=== PATIENT | male | born 1975 | race Caucasian/White ===

== ENCOUNTER 2020-10-27 07:24 | Emergency (ER) | payer OTHER ==
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
[2020-10-27] MEDS ORDERED: Diphtheria,Pertussis(Acell),Tetanus Vaccine 0.5 ML Syringe IM ONE (07:52)
--- NOTE | 2020-10-27 08:30 | CR ---
Right elbow: 2 views of the right elbow were obtained. Comparison: No prior elbow study is available. Fracture is identified within the radial neck which shows no displacement. Fracture is noted within the proximal one third of the radial diaphysis which remains anatomically aligned. Fracture is noted in two locations within the proximal ulnar diaphysis. Most proximal fracture shows no displacement. Slightly comminuted distal fracture shows approximately one half shaft width displacement. No fracture is noted within the distal humerus. Soft tissue swelling is noted around the fracture. Impression: 1. Fracture in 2 locations within the ulna. Displacement is noted of the distal fracture by about one half shaft width. 2. Fracture in 2 locations within the radius which show no significant displacement. 3. Soft tissue swelling. Diagnostic code #3
--- NOTE | 2020-10-27 08:33 | CR ---
Right humerus: 2 views of the right humerus were obtained. Comparison: No prior humerus study. Slight joint space narrowing and minimal inferior spurring is seen within the acromioclavicular joint. Radial neck fracture is seen. No acute abnormality is appreciated within the humerus. Impression: 1. Radial neck fracture. 2. Mild degenerative change. 3. No acute abnormality seen within the right humerus. Diagnostic code #3
--- NOTE | 2020-10-27 08:35 | CR ---
Right forearm: 2 views of the right forearm were obtained. Comparison: No prior study. Mildly comminuted fracture is seen within the proximal mid one-third diaphysis of the ulna. There is displacement on this study by about three-quarter shaft width. Additional fracture is noted within the proximal ulnar diaphysis which shows no displacement. Fracture is noted within the mid one-third diaphysis of the radius which appears within normal limits in alignment. Additional nondisplaced fracture is noted within the radial neck. No distal fracture is seen. Diffuse soft tissue swelling is noted. Impression: 1. Radial and ulnar fractures as noted above. 2. Diffuse soft tissue swelling. Diagnostic code #3
[2020-10-27] MEDS ORDERED: HYDROmorphone 0.5 MG/0.5 ML Syringe IM ONE (10:40)
[2020-10-27] MEDS ORDERED: Promethazine 25 MG/ML SDV IM ONE (10:40)
== END 2020-10-27 11:00 ==
LOC: JD.ED 07:24
DX: S52.131A Displaced fracture of neck of right radius, initial encounter for closed fracture (principal); S52.091A Other fracture of upper end of right ulna, initial encounter for closed fracture; Z23 Encounter for immunization; V30 Occupant of three-wheeled motor vehicle injured in collision with pedestrian or animal
CPT/HCPCS: 29105; 73060; 73070; 73090; 90471; 90715; 96372; 99284; J1170; J2550; 99283